=== PATIENT | male | born 1980 | race Caucasian/White ===

== ENCOUNTER 2020-10-27 10:20 | Emergency (ER) | payer BC, MEDICAID ==
[~2020-10-27] VITALS: Ht 170.2 cm; Wt 83.0 kg
[2020-10-27 10:30] VITALS: BP 172/103
[2020-10-27] MEDS ORDERED: CARBAMIDE PEROXIDE EAR DROPS 6.5%, 15ML RIGHT EAR ONE (11:00)
[2020-10-27] MEDS ORDERED: CARBAMIDE PEROXIDE EAR DROPS 6.5%, 15ML LEFT EAR ONE (11:00)
[2020-10-27] MEDS ORDERED: CARBAMIDE PEROXIDE EAR DROPS 6.5%, 15ML ONE (11:05)
== END 2020-10-27 14:24 | disposition home or self-care (01) ==
LOC: ED 13:17
DX: H61.23 Impacted cerumen, bilateral (principal); H60.593 Other noninfective acute otitis externa, bilateral; F17.210 Nicotine dependence, cigarettes, uncomplicated
CPT/HCPCS: 69210; 99284